=== PATIENT | male | born 1985 | race Caucasian/White ===

== ENCOUNTER 2022-02-19 10:26 | Emergency (ER) | payer OTHER, SELFPAY ==
[2022-02-19 11:00] VITALS: BP 130/79; PULSE 88; RESP 18; TEMP 36.2; O2SAT 99; BMI 35.2
--- NOTE | 2022-02-19 13:03 | ED.EAR ---
HPI - Ear Problem General Chief complaint: Ear Stated complaint: sharp pain in lt ear Time Seen by Provider: 02/19/22 12:49 Source: patient Mode of arrival: Ambulatory History of Present Illness HPI Narrative: 36-year-old male, nonsmoker, presents emergency department with left ear swelling and pain x2 days. Patient had previous otitis externa of his right ear, in addition to a fungal infection, that was resolved after seeing his ENT specialist. Patient has been instilling the antifungal clotrimazole drops into his left ear but is now having increased redness, swelling and yellow discharge. Patient denies any trauma to his left ear. Related Data Previous Rx's Medication Instructions Recorded ntlfwymd-[id number]-fvmqaiivi 3.5 4 drp EAR-LEFT TID otitis externa 02/19/22 mg-10,000 unit/mL-1 % ear 7 days #10 mL drops,susp Allergies Allergy/AdvReac Type Severity Reaction Status Date / Time shellfish derived Allergy Severe Anaphylaxis Verified 02/19/22 13:07 IV contrast Allergy Severe Anaphylaxis Uncoded 02/19/22 13:07 Review of Systems Review of Systems Narrative: Narrative: GENERAL: Denies chills, fatigue, fever, sweats. See HPI HEENT: Denies sinus pain, sore throat, difficulty swallowing, dizziness. RESPIRATORY: Denies dyspnea, cough, wheezing, sputum. CARDIOVASCULAR: Denies chest pain, palpitations, edema. GASTROINTESTINAL: Denies nausea, vomiting, abdominal pain, diarrhea, constipation. : Denies dysuria, frequency, incontinence, hematuria, urinary retention, flank pain. MSK: Denies weakness, joint pain, or bony pain. SKIN: Denies rash, skin lesions, or pruritis. NEUROLOGIC: Denies weakness, dizziness, headache, numbness, confusion. PSYCHIATRIC: No concerning psychosocial issues. Patient History Substance Use Type: does not use Exam Narrative Exam Narrative: Exam Narrative: GENERAL: This is a well-nourished, well-developed patient, in no acute distress HEAD: Atraumatic. Normocephalic. EYES: Pupils equal round and reactive. Extraocular motions intact. No scleral icterus, injection or drainage. ENT: Nose without bleeding, purulent drainage. Throat without erythema, tonsillar hypertrophy or exudate. Airway patent. Right ear with normal TM, left canal is red, swollen with yellow discharge. NECK: Trachea midline. No JVD or lymphadenopathy. Nontender. CARDIOVASCULAR: Regular rate and rhythm without murmurs, peripheral pulses intact, cap refill <2 sec. RESPIRATORY: Breath sounds equal and clear bilaterally. No wheezes, rales, or rhonchi. No cough. No increased respiratory effort. No accessory muscle use. GASTROINTESTINAL: Abdomen soft, non-tender, nondistended without guarding or rebound. No suprapubic pain. MSK: Moves all extremities. Normal range of motion, no clubbing or edema. Neurovascularly intact. NEURO: A&O x 3. SKIN: Warm, dry, no rashes or lesions noted. Initial Vital Signs Initial Vital Signs: Vital Signs Temperature 97.2 F L 02/19/22 11:00 Pulse Rate 88 02/19/22 11:00 Respiratory Rate 18 02/19/22 11:00 Blood Pressure 130/79 02/19/22 11:00 Pulse Oximetry 99 02/19/22 11:00 Oxygen Delivery Method 02/19/22 11:00 Reviewed Course Vital Signs Vital signs: Vital Signs - 8 hr 02/19/22 11:00 Temperature 97.2 F L Pulse Rate 88 Respiratory Rate 18 Blood Pressure 130/79 Pulse Oximetry 99 Oxygen Delivery Method Room Air Medical Decision Making Differential Diagnosis Differential Diagnosis: Otitis externa MDM Narrative Medical decision making narrative: 36-year-old male that presents to the emergency department with left ear redness, swelling and pain consistent with otitis externa. Will treat with antibiotic drops. Patient has an appointment with his ENT on February 23 and will follow-up at that time. Patient provided a work note so that he does not put any ear protection inner on his ear until this clears. Discussed return precautions and plan of care with patient, who is agreeable with course of action. Discharge Plan Departure Patient Disposition: Home Clinical Impression: Otitis externa Instructions: DI for Otitis Externa Activity Restrictions/Additional Instructions: *You have been diagnosed with left otitis externa. Please use the drops as prescribed. As we discussed, follow-up with your ENT specialist as previously scheduled. For any worsening symptoms, please follow-up with your family doctor or return to the emergency department. *What to do: *Please continue to take your regular medications as directed. [X] New medication prescriptions sent to your pharmacy: [[facility] in [place]] [ ] New medication written as a paper prescription [ ] No new medications given *Please follow up with your primary care provider in 2-3 days, call for an appointment. Let them know you were seen in the Emergency Department and that we ask that you be seen in follow up. We will electronically transmit a record of today's note if your PCP is in our system *If you do not have a primary care provider please contact the [facility] Resource line at [phone]. They will ask some questions about your medical history and help get you set up with a doctor in the community. ? Return to ER if you should have any new, worsening or concerning symptoms, such as worsening pain, severe headache, confusion, chest pain, difficulty breathing, fever greater than 101 F, shaking chills, persistent vomiting to the point that you cannot drink fluids, or other new or worsening symptoms. Prescriptions: New [id number]-cbmqpdykh-[id number] 3.5-10,000-1 mg/mL-unit/mL-% drops,suspension 4 drp EAR-LEFT TID 7 Days Qty: 10 0RF Referrals: ProviderTamra [Primary Care Provider] - Stand Alone Forms: Work Release Note
== END 2022-02-19 13:13 | disposition home or self-care (01) ==
PROVIDERS: Emergency Provider Registered Nurse
DX: H60.92 Unspecified otitis externa, left ear (principal)
CPT/HCPCS: 99281

== ENCOUNTER 2022-07-10 23:02 | Emergency (ER) | payer OTHER, SELFPAY ==
[2022-07-10 23:18] VITALS: BP 129/75; PULSE 104; RESP 18; TEMP 36.6; O2SAT 96; BMI 34.9
[2022-07-10 23:44] LABS: Add Manual Diff / Slide Review NO; Basophils Absolute Auto 100 /uL (0-100); Basophils Percent Auto 1.1 % (0-2); Eosinophils Absolute Auto 500 /uL (0-450); Eosinophils Percent Auto 3.7 % (2-4); Hematocrit 42.7 % (41-53); Hemoglobin 14.7 g/dL (13.5-17.5); Lymphocytes Absolute Auto 3500 /uL (1100-4500); Lymphocytes Percent Auto 27.6 % (25-40); Mean Corpuscular HGB Conc 34.4 % (30-36); Mean Corpuscular Hemoglobin 28.2 PG (26-34); Mean Corpuscular Volume 82.1 fL (80-100); Monocytes Absolute Auto 800 /uL (0-900); Monocytes Percent Auto 6.6 % (3-14); Neutrophils Absolute Auto 7700 /uL (1500-7000); Platelet Count 336 X10^3/uL (150-400); Red Cell Distribution Width 12.9 % (11.6-14.8); White Blood Cell Count 12.7 X10^3/uL (4.5-11.0)
[2022-07-10 23:53] LABS: Alanine Aminotransferase 50 IU/L (<50); Albumin 4.3 g/dL (3.5-5.0); Albumin Globulin Ratio 1.3 (1.0-2.8); Alkaline Phosphatase 112 U/L (38-126); Aspartate Aminotransferase 28 IU/L (17-59); BUN Creatinine Ratio 21.2 (6-22); Bilirubin Total 0.4 mg/dL (0.2-1.3); Blood Urea Nitrogen 18 mg/dL (9-20); Calcium 9.1 mg/dL (8.4-10.2); Carbon Dioxide 21 mmol/L (22-32); Chloride 106 mmol/L (98-107); Estimated Glomerular Filt Rate > 60 mL/min (>60); Globulin 3.3 g/dL (1.7-4.1); Glucose 117 mg/dL (70-100); Lipase 63 U/L (23-300); Sodium 139 mmol/L (137-145); Total Protein 7.6 g/dL (6.3-8.2)
[2022-07-10 23:54] LABS: HEMOLYSIS 70 (0-50); Potassium 3.8 mmol/L (3.4-5.1)
--- NOTE | 2022-07-11 03:02 | ED_ITS ---
HPI - Abdominal Pain General Chief Complaint: Abdominal Pain Stated Complaint: abd pain right side Time Seen by Provider: 07/11/22 02:34 Source: patient Mode of arrival: Ambulatory History of Present Illness HPI narrative: 36-year-old male nonsmoker with noncontributory medical history presents with his in the chief complaint of severe right groin pain for the past 24 hours. He states it woke him from sleep and is largely present in his right groin with episodes of radiation into his scrotum and even into his right flank. He states that there episodes with the pain rapidly worsens without any obvious provocation or palliation Related Data Previous Rx's Medication Instructions Recorded cyclobenzaprine 10 mg tablet 10 mg PO TID PRN muscle spasm #14 07/11/22 tabs ketorolac 10 mg tablet 10 mg PO Q6H PRN pain #14 tabs 07/11/22 ondansetron 4 mg disintegrating 4 mg PO TID-QID PRN nausea and 07/11/22 tablet vomiting #10 tabs Allergies Allergy/AdvReac Type Severity Reaction Status Date / Time shellfish derived Allergy Severe Anaphylaxis Verified 02/19/22 13:07 IV contrast Allergy Severe Anaphylaxis Uncoded 02/19/22 13:07 Review of Systems Review of Systems Narrative: GENERAL: Denies chills, fatigue, malaise, fever, sweats. HEENT: Denies sinus pain, ear pain, sore throat, difficulty swallowing, dizziness. RESPIRATORY: Denies dyspnea, cough, wheezing, hemoptysis, sputum. CARDIOVASCULAR: Denies chest pain, palpitations, orthopnea, edema, GASTROINTESTINAL: See HPI : See HPI MUSCULOSKELETAL: denies weakness, joint pain, or bony pain SKIN: Denies rash, skin lesions, or other NEUROLOGIC: Denies weakness, headache, numbness, change in speech, confusion, seizures, incoordination. PSYCHIATRIC: No concerning psychosocial issues. 12 point review of systems is negative except for those stated above Patient History Substance Use Type: does not use Exam Narrative Exam Narrative: GENERAL: [36] year old patient appears stated age. Well-developed patient, in mi ld distress. HEAD: Atraumatic. Normocephalic. EYES: Pupils equal round and reactive. Extraocular motions intact. No scleral icterus. No injection or drainage. ENT: Nose without bleeding, purulent drainage. Throat without erythema, tonsillar hypertrophy or exudate. Airway patent. NECK: Trachea midline. Non tender CARDIOVASCULAR: Regular rate and rhythm without murmurs, gallops, or rubs. RESPIRATORY: Clear to auscultation. Breath sounds equal bilaterally. No wheezes, rales, or rhonchi. GASTROINTESTINAL: Abdomen soft, non-tender, nondistended. : Patient examined while standing, no obvious testicular swelling, erythema or pain on palpation. No obvious hernia EXTREMITIES: No edema or joint tenderness. BACK: Nontender without deformity or crepitance. No flank tenderness. NEURO: AOx3. SKIN: No rash or erythema of visible areas Initial Vital Signs Initial Vital Signs: Vital Signs Temperature 98 F 07/10/22 23:18 Pulse Rate 104 H 07/10/22 23:18 Respiratory Rate 18 07/10/22 23:18 Blood Pressure 129/75 07/10/22 23:18 Pulse Oximetry 96 07/10/22 23:18 Oxygen Delivery Method 07/10/22 23:18 Course Orders Ordered: ED Orders 07/10/22 23:34 Complete Blood Count AUTO DIFF Stat Comprehensive Metabolic Panel Stat Lipase Stat 07/11/22 03:08 CT kidney ureter bladder (KUB) Stat Ondansetron HCl (Ondansetron 4 Mg Odt) 4 mg PO NOW PRN PRN Reason: Nausea And Vomiting Ondansetron HCl (Ondansetron 4 Mg/2 Ml Inj) 4 mg IV NOW PRN PRN Reason: Nausea And Vomiting Discontinued Medications Sodium Chloride (Normal Saline 0.9%) 1,000 mls @ 1,000 mls/hr IV BOLUS ONE Stop: 07/11/22 04:07 Last Infusion: 07/11/22 04:40 Dose: 0 mls/hr Documented By: JOSE MIGUEL Admin: 07/11/22 03:32 Dose: 1,000 mls/hr Documented By: JOSE MIGUEL Ketorolac Tromethamine (Ketorolac 30 Mg/Ml Vial) 15 mg IV NOW ONE Stop: 07/11/22 03:09 Last Admin: 07/11/22 03:31 Dose: 15 mg Documented By: JOSE MIGUEL Vital Signs Vital signs: Vital Signs - 8 hr 07/10/22 23:18 Temperature 98 F Pulse Rate 104 H Respiratory Rate 18 Blood Pressure 129/75 Pulse Oximetry 96 Oxygen Delivery Method Room Air MDM - Abdominal Pain Lab Data Result diagrams: 07/10/22 23:34 07/10/22 23:34 Labs: Lab Results 07/10/22 07/10/22 Range/Units 23:34 23:34 WBC 12.7 H (4.5-11.0) X10^3/uL RBC 5.20 (4.5-5.9) X10^6/uL Hgb 14.7 (13.5-17.5) g/dL Hct 42.7 (41-53) % MCV 82.1 (80-100) fL MCH 28.2 (26-34) PG MCHC 34.4 (30-36) % RDW 12.9 (11.6-14.8) % Plt Count 336 (150-400) X10^3/uL Neut % (Auto) 61.0 (50-75) % Lymph % (Auto) 27.6 (25-40) % [place] % (Auto) 6.6 (3-14) % Eos % (Auto) 3.7 (2-4) % Baso % (Auto) 1.1 (0-2) % Neut # (Auto) 7700 H (3878-5999) /uL Lymph # (Auto) 3500 (3482-6044) /uL [place] # (Auto) 800 (0-900) /uL Eos # (Auto) 500 H (0-450) /uL Baso # (Auto) 100 (0-100) /uL Sodium 139 (137-145) mmol/L Potassium 3.8 (3.4-5.1) mmol/L Chloride 106 (98-107) mmol/L Carbon Dioxide 21 L (22-32) mmol/L BUN 18 (9-20) mg/dL Creatinine 0.85 (0.66-1.25) mg/dL Estimated GFR > 60 (>60) mL/min BUN/Creatinine Ratio 21.2 (6-22) Glucose 117 H (70-100) mg/dL Calcium 9.1 (8.4-10.2) mg/dL Total Bilirubin 0.4 (0.2-1.3) mg/dL AST 28 (17-59) IU/L ALT 50 H (<50) IU/L Alkaline Phosphatase 112 (38-126) U/L Total Protein 7.6 (6.3-8.2) g/dL Albumin 4.3 (3.5-5.0) g/dL Globulin 3.3 (1.7-4.1) g/dL Albumin/Globulin Ratio 1.3 (1.0-2.8) Lipase 63 (23-300) U/L Point of care testing: Urine Dip Bedside Urine Glucose Negative Bedside Urine Bilirubin - Negative Bedside Urine Ketone - Negative Urine Specific [place] 1.030 Bedside Urine Occult Blood - Negative Bedside Urine pH 6.0 Bedside Urine Protein - Negative Bedside Urine Urobilinogen 2+ 4mg Bedside Urine Nitrite - Negative Bedside Urine Leukocytes - Negative Esterase Imaging Data CT scan - abdomen/pelvis: Radiologist's Impression: No evidence of colitis, diverticulitis, bowel obstruction, obstructive uropathy or acute appendicitis. No CT findings to explain right flank pain. MDM Narrative Medical decision making narrative: [36-year-old male without significant medical history presents with a few days of right flank, right lower quadrant and right testicular pain] Multiple etiologies for patient's symptoms considered including, but not limited to: [Kidney stone, pyelonephritis, bowel obstruction, appendicitis versus other] Prior Charts reviewed: Including emergency department visit from February of this year Labs reviewed and interpreted by myself: No significant abnormalities, slight elevation of white blood cell count noted, no obvious source of infection Imaging reviewed: CT of abdomen and pelvis without contrast demonstrates no findings consistent with kidney stone, obstruction versus other Patient's symptoms improved over duration of stay with above-stated therapies. Findings and discharge diagnosis discussed with patient/family followed by verbalization of understanding Return precautions discussed with patient/family whom verbalize understanding of diagnosis and plan Discharge Plan Departure Patient Disposition: Home Clinical Impression: Acute right flank pain Instructions: DI for Flank Pain Activity Restrictions/Additional Instructions: *You have been diagnosed with [right flank and groin pain. As we discussed your history and physical exam are reassuring. Labs including blood work and urine as well as CT scan are reassuring there is no evidence of urine infection, kidney stone, bowel obstruction, appendicitis or other diagnosis that would require a specific intervention] *What to do: *Please continue to take your regular medications as directed. [ x] New medication prescriptions sent to your pharmacy: [[facility] in [place] ] [ ] New medication written as a paper prescription [ ] No new medications given *Please follow up with your primary care provider in 2-3 days, call for an appointment. Let them know you were seen in the Emergency Department and that we ask that you be seen in follow up. We will electronically transmit a record of today's note if your PCP is in our system *If you do not have a primary care provider please contact the [facility] Resource line at [phone]. They will ask some questions about your medical history and help get you set up with a doctor in the community. *Return to Emergency Department if you should have any new, worsening or concerning symptoms, such as [fever greater than 101 F, shaking chills, worsening pain, persistent vomiting or other bothersome symptoms] You have been prescribed a short course of narcotic medications. These are potentially dangerous and addictive medications that should be used carefully. While on these medications you cannot drive or operate heavy machinery. Additionally, you cannot sign legal documents or perform any duties such as this. Many people get constipated on narcotic medications so it would be advis able to discuss stool softeners with the pharmacist when you [employer] your prescription. Please understand that we cannot provide further refills of narcotics or controlled substances through the ED and your pain management will need to be through your Primary Care Provider Prescriptions: New cyclobenzaprine 10 mg tablet 10 mg PO TID PRN (Reason: muscle spasm) Qty: 14 0RF ketorolac 10 mg tablet 10 mg PO Q6H PRN (Reason: pain) Qty: 14 0RF ondansetron 4 mg tablet,disintegrating 4 mg PO TID-QID PRN (Reason: nausea and vomiting) Qty: 10 0RF Referrals: ProviderTamra [Primary Care Provider] -
--- NOTE | 2022-07-11 03:08 | DI.CT.S_ITS ---
PROCEDURE: CT KIDNEY URETER BLADDER (KUB) INDICATIONS: R flank / groin pain TECHNIQUE: Axial sections were acquired from the lung bases to the pubic symphysis. Coronal and sagittal reformats were performed. For radiation dose reduction, the following was used: automated exposure control, adjustment of mA and/or kV according to patient size. COMPARISON: None. FINDINGS: Image quality: Excellent. Lung bases: Unremarkable. Heart: No significant findings. URINARY: Right Kidney: No stones or hydronephrosis. Right Ureter: No hydroureter. Left Kidney: No stones or hydronephrosis. Left Ureter: No hydroureter. Bladder: Normal wall thickness. No stones. ABDOMEN: Liver: The liver is diffusely hypodense suggesting fatty infiltration. Gallbladder: Unremarkable. Biliary ducts: Unremarkable. Pancreas: Unremarkable. Spleen: Unremarkable. Adrenal Glands: Unremarkable. Stomach and Bowel: Stomach, small bowel loops, and colon are unremarkable. The appendix is thin walled and gas filled. Peritoneum: No abnormal intraperitoneal fluid. No free air. Ventral Wall: No hernia. Abdominal Nodes: No enlarged retroperitoneal or mesenteric lymph nodes. Vessels: Aorta and inferior vena cava are normal in size. PELVIS: Pelvic Organs: Unremarkable. Pelvic Nodes: Unremarkable. Miscellaneous: No inguinal hernias are seen. Bones: Unremarkable. IMPRESSION: 1. No hydronephrosis, nephrolithiasis, hydroureter, or ureterolithiasis. 2. No acute intra-abdominal findings. Normal appendix. 3. Hepatic steatosis These findings are concordant with the overnight interpretation. Dictated by: Sarah Crawley M.D. on 07/11/2022 at 8:09 Approved by: Sarah Crawley M.D. on 07/11/2022 at 8:11
[2022-07-11] MEDS: KETOROLAC 30 MG/ML VIAL 15 MG IV (03:31)
[2022-07-11] MEDS: SODIUM CHLORIDE 0.9% 1,000 ML 1000 ML IV (03:32)
[2022-07-11] MEDS: HYDROCODONE/ACET 5/325 PREPACK 1 BOTTLE MISC (06:33)
[2022-07-11 06:59] VITALS: BP 134/80; PULSE 76; RESP 18; TEMP 36.8; O2SAT 98
== END 2022-07-11 07:00 | disposition home or self-care (01) ==
PROVIDERS: Emergency Provider Emergency Medicine
DX: R10.9 Unspecified abdominal pain (principal)
CPT/HCPCS: 36415; 74176; 80053; 81003; 83690; 85025; 96361; 96374; 99284; J1885

== ENCOUNTER 2024-07-29 14:40 | Emergency (ER) | payer OTHER, SELFPAY ==
[2024-07-29] VITALS (10 sets, daily range): BP systolic 129–145; BP diastolic 68–80; PULSE 88–99; RESP 18; TEMP 36.5; O2SAT 96–99; BMI 35.7
--- NOTE | 2024-07-29 14:47 | EKG_ITS ---
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
--- NOTE | 2024-07-29 14:53 | DI.RAD.S_ITS ---
PROCEDURE: XR CHEST 1V INDICATIONS: chest pain TECHNIQUE: One view of the chest was acquired. COMPARISON: None. FINDINGS: Surgical changes and devices: None. Lungs and pleura: Lungs are clear. No pleural effusions or pneumothorax. Mediastinum: Mediastinal contours appear normal. Heart size is normal. Bones and chest wall: No suspicious bony lesions. Overlying soft tissues appear unremarkable. IMPRESSION: No acute cardiopulmonary abnormality is seen. Dictated by: Hilaria Ames MD, PhD on 07/29/2024 at 15:06 Approved by: Hilaria Ames MD, PhD on 07/29/2024 at 15:06
[2024-07-29] MEDS: ASPIRIN 81 MG CHEW TAB 324 MG PO (15:04)
[2024-07-29 15:14] LABS: Add Manual Diff / Slide Review NO; Basophils Absolute Auto 100 /uL (0-100); Eosinophils Absolute Auto 300 /uL (0-450); Eosinophils Percent Auto 2.5 % (2-4); Hematocrit 44.8 % (41-53); Hemoglobin 15.2 g/dL (13.5-17.5); Lymphocytes Absolute Auto 3200 /uL (1100-4500); Lymphocytes Percent Auto 29.8 % (25-40); Mean Corpuscular Hemoglobin 28.4 PG (26-34); Mean Corpuscular Volume 83.6 fL (80-100); Monocytes Absolute Auto 500 /uL (0-900); Monocytes Percent Auto 4.3 % (3-14); Neutrophils Absolute Auto 6800 /uL (1500-7000); Neutrophils Percent Auto 62.4 % (50-75); Platelet Count 353 X10^3/uL (150-400); Red Blood Cell Count 5.36 X10^6/uL (4.5-5.9); Red Cell Distribution Width 12.7 % (11.6-14.8); White Blood Cell Count 10.9 X10^3/uL (4.5-11.0)
[2024-07-29 15:23] LABS: Prothrombin Time 11.6 SECONDS (9.4-12.5)
[2024-07-29 15:25] LABS: PTT Partial Thromboplastin Tim 40 SECONDS (25.1-36.5)
[2024-07-29 15:27] LABS: Alanine Aminotransferase 83 IU/L (<50); Albumin 4.6 g/dL (3.5-5.0); Albumin Globulin Ratio 1.6 (1.0-2.8); Alkaline Phosphatase 89 U/L (38-126); Aspartate Aminotransferase 38 IU/L (17-59); BUN Creatinine Ratio 18.2 (6-22); Bilirubin Total 0.4 mg/dL (0.2-1.3); Blood Urea Nitrogen 18 mg/dL (9-20); Calcium 9.7 mg/dL (8.4-10.2); Carbon Dioxide 26 mmol/L (22-32); Chloride 104 mmol/L (98-107); Creatine Kinase 101 U/L (55-170); Estimated Glomerular Filt Rate > 60 mL/min (>60); Globulin 2.8 g/dL (1.7-4.1); Glucose 136 mg/dL (70-100); Lipase 68 U/L (23-300); Magnesium 1.8 mg/dL (1.6-2.3); Potassium 3.6 mmol/L (3.4-5.1); Sodium 139 mmol/L (137-145); Total Protein 7.4 g/dL (6.3-8.2)
--- NOTE | 2024-07-29 15:27 | ED.CHESTPAIN ---
HPI - Chest Pain General Chief Complaint: Chest Pain Stated Complaint: SoB, Tightness in Back, Pain Around Chest Time Seen by Provider: 07/29/24 15:05 Source: patient Mode of arrival: Ambulatory Limitations: no limitations History of Present Illness HPI narrative: 39-year-old gentleman with no significant medical history was at work today when he experienced a bandlike tightness around his chest just under his nipples. He describes it as if somebody came up behind him and squeeze him under his armpits. Lasted somewhere between 5 and 10 minutes. He had had breakfast at 8:00 a.m. a snack at 10:00 a.m. the pain symptom was at 12:30 p.m. today. No fevers, cough, chills, palpitations, dyspnea, nausea, vomiting, diarrhea. There was a very strong family history for gallbladder disease. Patient himself has never had any gallbladder issues identified. Related Data Previous Rx's Medication Instructions Recorded cyclobenzaprine 10 mg tablet 10 mg PO TID PRN muscle spasm #14 07/11/22 tabs ketorolac 10 mg tablet 10 mg PO Q6H PRN pain #14 tabs 07/11/22 ondansetron 4 mg disintegrating 4 mg PO TID-QID PRN nausea and 07/11/22 tablet vomiting #10 tabs Allergies Allergy/AdvReac Type Severity Reaction Status Date / Time shellfish derived Allergy Severe Anaphylaxis Verified 07/29/24 14:58 IV contrast Allergy Severe Anaphylaxis Uncoded 07/29/24 14:58 Review of Systems Review of Systems Narrative: Pertinent positive and negative findings as per HPI Patient History Social History Smoking Status: Current some day smoker Smoking Status: Current some day smoker tobacco type: vaping Exam Initial Vital Signs Initial Vital Signs: Vital Signs Pulse Rate 90 07/29/24 14:46 Blood Pressure 129/75 07/29/24 14:46 Pulse Oximetry 97 07/29/24 14:46 General: Healthy appearing, in no acute distress. Able to give a complete and coherent history. Well-nourished well-developed HEENT: Moist mucous membranes, normal sclera with reactive pupils, Neck: No JVD, supple Respiratory: Lungs are clear to auscultation, no wheezing no rales no rhonchi. Full and symmetrical air movement Cardiac: Regular rate and rhythm no murmurs no bruits Abdomen: Soft, nontender, good bowel tones, no flank pain Skin: Warm and dry, no rashes Neurologic: Grossly neurologically intact with no obvious asymmetries or abnormalities Extremities: No trauma, well perfused Psych: Cooperative, appropriate insight and affect Course Orders Ordered: ED Orders 07/29/24 14:47 EKG-12 Lead Stat 07/29/24 14:53 XR chest 1V Stat 07/29/24 15:07 Complete Blood Count AUTO DIFF Stat Comprehensive Metabolic Panel Stat Lipase Stat Magnesium Stat NT-proBNP (BNP-Adult 18+) Stat PTT Partial Thromboplastin Alphonse Stat Prothrombin Time INR Stat Troponin & CK Cardiac Panel Stat Discontinued Medications Aspirin (Aspirin 81 Mg Chew Tab) 324 mg PO NOW ONE Stop: 07/29/24 14:54 Last Admin: 07/29/24 15:04 Dose: 324 mg Documented By: BRENDON Vital Signs Vital signs: Vital Signs - 8 hr 07/29/24 14:46 07/29/24 14:46 07/29/24 14:47 Temperature Pulse Rate 90 91 H Respiratory Rate Blood Pressure 129/75 Pulse Oximetry 97 99 Oxygen Delivery Method 07/29/24 14:47 07/29/24 14:53 07/29/24 15:00 Temperature 97.7 F Pulse Rate 90 Respiratory Rate 18 Blood Pressure 131/80 131/80 134/78 Pulse Oximetry 97 Oxygen Delivery Method Room Air 07/29/24 15:00 07/29/24 15:30 07/29/24 15:56 Temperature Pulse Rate 92 H 91 H 92 H Respiratory Rate Blood Pressure Pulse Oximetry 98 96 97 Oxygen Delivery Method Room Air 07/29/24 15:56 07/29/24 16:00 07/29/24 16:00 Temperature Pulse Rate 91 H Respiratory Rate Blood Pressure 133/70 132/70 Pulse Oximetry 97 Oxygen Delivery Method Room Air MDM - Chest Pain Lab Data 07/29/24 15:07 07/29/24 15:07 Labs: Lab Results 07/29/24 Range/Units 15:07 WBC 10.9 (4.5-11.0) X10^3/uL RBC 5.36 (4.5-5.9) X10^6/uL Hgb 15.2 (13.5-17.5) g/dL Hct 44.8 (41-53) % MCV 83.6 (80-100) fL MCH 28.4 (26-34) PG MCHC 34.0 (30-36) % RDW 12.7 (11.6-14.8) % Plt Count 353 (150-400) X10^3/uL Neut % (Auto) 62.4 (50-75) % Lymph % (Auto) 29.8 (25-40) % Victoria % (Auto) 4.3 (3-14) % Eos % (Auto) 2.5 (2-4) % Baso % (Auto) 1.0 (0-2) % Neut # (Auto) 6800 (2663-4192) /uL Lymph # (Auto) 3200 (4109-9849) /uL Victoria # (Auto) 500 (0-900) /uL Eos # (Auto) 300 (0-450) /uL Baso # (Auto) 100 (0-100) /uL PT 11.6 (9.4-12.5) SECONDS INR 1.0 (0.9-1.3) APTT 40 H (25.1-36.5) SECONDS Sodium 139 (137-145) mmol/L Potassium 3.6 (3.4-5.1) mmol/L Chloride 104 (98-107) mmol/L Carbon Dioxide 26 (22-32) mmol/L BUN 18 (9-20) mg/dL Creatinine 0.99 (0.66-1.25) mg/dL Estimated GFR > 60 (>60) mL/min BUN/Creatinine Ratio 18.2 (6-22) Glucose 136 H (70-100) mg/dL Calcium 9.7 (8.4-10.2) mg/dL Magnesium 1.8 (1.6-2.3) mg/dL Total Bilirubin 0.4 (0.2-1.3) mg/dL AST 38 (17-59) IU/L ALT 83 H (<50) IU/L Alkaline Phosphatase 89 (38-126) U/L Total Creatine Kinase 101 (55-170) U/L Troponin I < 0.012 (0.01-0.034) ng/mL NT-Pro-B Natriuret Pep < 20 (<125) pg/mL Total Protein 7.4 (6.3-8.2) g/dL Albumin 4.6 (3.5-5.0) g/dL Globulin 2.8 (1.7-4.1) g/dL Albumin/Globulin Ratio 1.6 (1.0-2.8) Lipase 68 (23-300) U/L MDM Narrative Medical decision making narrative: CC: Bandlike upper abdominal pain Data collected from: patient Differential considered: Gallbladder disease, pancreatitis, gastritis or ulcer, pneumonia, pneumothorax, acute coronary syndrome Exam documented above, pertinent findings include: Exam is entirely benign. Patient's pain is relieved and not reproducible. Lab Test results independently reviewed as above. Pertinent findings: CBC is reassuring. No signs of anemia Chemistries are unremarkable. No elevated liver enzymes or lipase Independently reviewed EKG: EKG is reassuring sinus rhythm at a rate of 89 no acute ischemic changes Imaging studies independently reviewed: Ultrasound shows a contracted gallbladder with no evidence of gallstones or dilated hepatic ducts Treatments: Toradol IV Discussion: 39-year-old gentleman with bandlike upper abdominal pain brief episode 1st episode today. No sign of infection, bleeding to suggest ulcer, lipase isn't elevated to suggest pancreatitis, no elevated liver enzymes. Belly exam is entirely benign at time of initial presentation. No evidence of cardiac disease. No evidence of gallstones. With benign exam otherwise and less than 10 minutes of pain I think that discharge home is safe. Have suggested that he follow up with his primary care physician and he is safe for discharge Discharge Plan Departure Patient Disposition: Home Clinical Impression: Acute upper abdominal pain Instructions: DI for Abdominal Pain-Adult Activity Restrictions/Additional Instructions: Thank you for coming in today The experienced that you had certainly sounds frightening. Your workup today has actually been quite reassuring. There was no evidence of infection in your lungs, no heart attack, no collapsed lung. No evidence of gallstones or gallbladder disease, gastritis or GI bleeding, pancreatitis. The rest of your belly exam is reassuring and I do not suspect bowel obstruction. Sometimes the best we do in the emergency department is tell you all the things that do not have and can be quite reassuring that this is not a life-threatening cause. Musculoskeletal pain still remains well within the differential for the source of your symptoms. Using 400 mg of ibuprofen (2 [id number] pills) and 1 Tylenol every 6 hours can be very helpful in controlling pain. I would encourage you to follow up with your primary care physician If you find that you are getting worse or develop any new symptoms, please feel free to return to the emergency department for further evaluation. Prescriptions: No Action cyclobenzaprine 10 mg tablet 10 mg PO TID PRN (Reason: muscle spasm) Qty: 14 0RF ketorolac 10 mg tablet 10 mg PO Q6H PRN (Reason: pain) Qty: 14 0RF ondansetron 4 mg tablet,disintegrating 4 mg PO TID-QID PRN (Reason: nausea and vomiting) Qty: 10 0RF Referrals: ProviderTamra [Primary Care Provider] - Stand Alone Forms: Patient Portal/API/Survey
[2024-07-29 15:36] LABS: HEMOLYSIS < 15 (0-50); NT-proBNP (BNP-Adult 18+) < 20 pg/mL (<125)
[2024-07-29 15:38] LABS: Troponin I < 0.012 ng/mL (0.01-0.034)
--- NOTE | 2024-07-29 17:00 | DI.US.S_ITS ---
PROCEDURE: US ABDOMEN LIMITED INDICATIONS: RUQ pain TECHNIQUE: Real-time focused scanning was performed of the abdomen, with image documentation. COMPARISON: [facility], CT, CT KIDNEY URETER BLADDER (KUB), 07/11/2022, 3:16. [facility], CR, XR CHEST 1V, 07/29/2024, 14:49. FINDINGS: The liver demonstrates enlarged size. The liver demonstrates generalized moderately increased echogenicity. This decreases ultrasound sensitivity for detection of hepatic masses. The gallbladder is contracted, which limits its evaluation. No findings of gallstones or sludge are seen. The gallbladder wall is not thickened, measuring 3 mm or less. No specific pericholecystic fluid is seen. The sonographic Alvarado sign is negative. Seen, secondary to overlying bowel gas. The pancreas is not well seen. IMPRESSION: Contacted gallbladder, without good visualization of the gallbladder on this ultrasound study. The biliary tree is not well seen. Additional findings: Enlarged, fatty infiltrated liver Dictated by: Gustavo Burks M.D. on 07/29/2024 at 16:51 Approved by: Gustavo Burks M.D. on 07/29/2024 at 16:53
[2024-07-29] MEDS: KETOROLAC 30 MG/ML VIAL 15 MG IV (17:31)
== END 2024-07-29 17:57 | disposition home or self-care (01) ==
PROVIDERS: Emergency Provider Emergency Medicine
DX: R10.10 Upper abdominal pain, unspecified (principal)
CPT/HCPCS: 36415; 71045; 76705; 80053; 82550; 83690; 83735; 83880; 84484; 85025; 85610; 85730; 93005; 93010; 96374; 99284; J1885